=== PATIENT | male | born 1930 | race Caucasian/White ===

== ENCOUNTER 2018-12-31 05:51 | Inpatient (IN) | payer MEDICARE | END 2019-01-03 17:50 | LOC: DAH 05:51 → DAHIP 05:52 → 4AH 09:52 → 4CH 10:21 → 4BH 01-01 19:37 | PROC: BR291ZZ Computerized Tomography (CT Scan) of Lumbar Spine using Low Osmolar Contrast (ICD-10-PCS; principal; ~2018-12-31) | DX: M54.16 Radiculopathy, lumbar region (principal); N17.9 Acute kidney failure, unspecified; G95.89 Other specified diseases of spinal cord; I50.32 Chronic diastolic (congestive) heart failure; I13.0 Hypertensive heart and chronic kidney disease with heart failure and stage 1 through stage 4 chronic kidney disease, or unspecified chronic kidney disease; E87.5 Hyperkalemia; N18.9 Chronic kidney disease, unspecified ==